=== PATIENT | female | born 1960 | race Caucasian/White ===

== ENCOUNTER → 2019-07-17 | Outpatient (CLI) | payer MEDICARE, MEDICAID | LOC: CARD 12:41 | PROVIDERS: ATTEND Internal Medicine Cardiovascular Disease | DX: E11.9 Type 2 diabetes mellitus without complications (principal); E78.2 Mixed hyperlipidemia; R06.09 Other forms of dyspnea; Z72.0 Tobacco use | CPT/HCPCS: 93306 ==

== ENCOUNTER → 2019-07-22 | Outpatient (CLI) | payer MEDICARE, MEDICAID ==
[~2019-07-22] VITALS: Ht 154 cm; Wt 107.0 kg
[~2019-07-22] MED LIST: CATHETER FLUSH 10 ML SYR IV PRN; REGADENOSON 0.4 MG/5 ML SYR (LEXISCAN) IV ONE
[2019-07-22 09:29] VITALS: BP 128/82
--- NOTE | 2019-07-22 18:59 | STRESS TEST ---
DATE OF SERVICE: 07/22/2019 LEXISCAN MYOVIEW STRESS TEST REPORT REFERRING PHYSICIAN: Dr. Owen. Baseline heart rate is 68, baseline blood pressure is 123/74. Baseline EKG is sinus rhythm with no ischemic changes. In summary, the patient was injected with 10.45 mCi of technetium-99 Myoview and the resting images were obtained. Then, the patient received 0.4 mg of Lexiscan followed by 28.7 mCi of technetium-99 Myoview. Throughout the test, there were no EKG changes. The resting and stress images were reviewed and compared in the short axis, horizontal long axis, and vertical long axis views. Review of the images showed breast attenuation with mild decreased uptake involving the anterior wall with mild reversibility. SSS is 5, SDS 5, TID value 0.96. On the gated images, the left ventricle appeared to be normal size with normal contractility. Calculated ejection fraction 77%. CONCLUSION: 1. The patient tolerated Lexiscan well. 2. Breast attenuation affecting the quality of the images with questionable mild ischemia involving the anterior wall. 3. Normal left ventricular size with normal contractility. Calculated ejection fraction 77%. Job ID: [id number] DocumentID: [id number] Dictated Date: 07/22/2019 15:15:42 Record Label Internship Date: 07/22/2019 18:58:43 Dictated By: JEFF OWEN MD
== END ==
LOC: CARD 07:09
PROVIDERS: ATTEND Internal Medicine Cardiovascular Disease
DX: E11.9 Type 2 diabetes mellitus without complications (principal); E78.2 Mixed hyperlipidemia; R06.09 Other forms of dyspnea; Z72.0 Tobacco use
CPT/HCPCS: 78452; 93017

== ENCOUNTER 2019-07-29 11:45 | Day surgery (SDC) | payer MEDICARE, MEDICAID ==
[~2019-07-29] VITALS: Ht 154 cm; Wt 107.0 kg
[2019-07-29] MEDS ORDERED: NS IV 1000 ML 1,000 ML ONE (11:53)
[2019-07-29] MEDS ORDERED: HEParin (CATH LAB) 2,000 ML IV ONE (11:53)
[2019-07-29] MEDS ORDERED: LIDOCAINE 1% INJ 20 ML 20 ML VIAL ONE (11:53)
[2019-07-29] MEDS ORDERED: NS IV 1000 ML 1,000 ML IV SCH ×2 (12:02→16:08)
[2019-07-29 12:04] VITALS: BP 119/75
[2019-07-29 12:22] LABS: HEMOGLOBIN 16.2 G/DL (11.5-16.0); MEAN PLATELET VOLUME 10.8 FL (7.4-10.4); RED CELL DISTRIBUTION WIDTH 13.1 % (10.0-14.5); WHITE BLOOD COUNT 7.7 10^3/uL (4.3-11.0)
[2019-07-29] MEDS ORDERED: DEXL60CA PO (12:23)
[2019-07-29] MEDS ORDERED: LINA5TAB PO (12:23)
[2019-07-29] MEDS ORDERED: ASPI325T32 PO (12:25)
[2019-07-29] MEDS ORDERED: GUAI400T71 PO (12:25)
[2019-07-29] MEDS ORDERED: METF500S5 PO (12:26)
[2019-07-29] MEDS ORDERED: IBUP-2473 PO (12:26)
[2019-07-29] MEDS ORDERED: VITA10007 PO (12:26)
[2019-07-29 12:33] LABS: BILIRUBIN,URINE NEGATIVE (NEGATIVE); CLARITY,URINE SL CLOUDY; COLOR,URINE YELLOW; GLUCOSE, URINE (UA) 1+ (NEGATIVE); KETONES,URINE NEGATIVE (NEGATIVE); LEUKOCYTE ESTERASE ,URINE 1+ (NEGATIVE); NITRITE,URINE NEGATIVE (NEGATIVE); PROTEIN,URINE 2+ (NEGATIVE)
--- NOTE | 2019-07-29 12:35 | Diagnostic Imaging Report ---
INDICATION: Pre-heart catheterization. Patient has dyspnea. TIME OF EXAM: 12:12 p.m. COMPARISON: No prior studies are available for comparison. FINDINGS: The heart size is normal. The pulmonary vascularity is unremarkable. The lungs are clear. No infiltrate, effusion or pneumothorax is detected. IMPRESSION: No acute cardiopulmonary process is detected. Dictated by: Dictated on workstation # [id number]
[2019-07-29 12:36] LABS: INR 0.9 (0.8-1.4); PROTHROMBIN TIME PATIENT 12.9 SEC (12.2-14.7)
[2019-07-29 12:44] LABS: ALANINE AMINOTRANSFERASE 76 U/L (0-55); ALBUMIN 4.1 GM/DL (3.2-4.5); ALKALINE PHOSPHATASE 131 U/L (40-136); BILIRUBIN,TOTAL 0.5 MG/DL (0.1-1.0); BUN/CREATININE RATIO 22; CALCIUM 9.6 MG/DL (8.5-10.1); CARBON DIOXIDE 24 MMOL/L (21-32); CHLORIDE 104 MMOL/L (98-107); CREATININE SERUM 0.74 MG/DL (0.60-1.30); GFR ESTIMATED > 60; GLUCOSE 161 MG/DL (70-105); POTASSIUM 4.3 MMOL/L (3.6-5.0); SODIUM 138 MMOL/L (135-145); TOTAL PROTEIN 7.3 GM/DL (6.4-8.2)
[2019-07-29] MEDS ORDERED: METF-397 PO (12:46)
--- NOTE | 2019-07-29 12:47 | NUR ---
SPOKE WITH THE PT (SHE HAD A MED LIST) WELL CALLING [facility] TO COMPLETE THE MED REC. THE PT WAS ABLE TO TELL ME HOW/WHEN SHE TAKES EACH MEDICATION. THE FOLLOWING ARE FILL DATES FROM [facility]: 04-24-2019 METFORMIN 500MG #60/30DS 06-12-2020 DEXILANT 60MG #30/30DS 07-13-2019 TRADJENTA 5MG #30/30DS THE PT WAS ASKED BY THE NURSE IF SHE WAS DIABETIC, PT REPLIED THAT YES SHE WAS BUT SHE DIDNT MONITOR IT. WHEN ASKED ABOUT INSULIN SHE IS SAYING SHE WAS SUPPOSED TO TAKE IT BUT NEVER DID. WHEN I CALLED [facility] THEY INDICATED THERE WAS NO INSULIN ON HER FILE. OTC MEDS: IBUPROFEN ASPIRIN MUCINEX VIT E
[2019-07-29 12:51] LABS: BACTERIA,URINE FEW /HPF; RBC,URINE RARE /HPF
[2019-07-29 12:52] LABS: TRICHOMONAS,URINE FEW /HPF
[2019-07-29] MEDS ORDERED: VERAPAMIL 5 MG/2 ML (CALAN) VIAL IV ONE (15:27)
[2019-07-29] MEDS ORDERED: NITRO DRIP 25000 MCG/D5W 250 ML IV ONE (15:27)
[2019-07-29] MEDS ORDERED: HEParin 1000 UNIT/ML (10ML VIAL) FOR BOLUS ONE (15:27)
[2019-07-29] MEDS ORDERED: fentaNYL INJECTION 100 MCG/2 ML AMP ONE (15:31)
[2019-07-29] MEDS ORDERED: MIDAZOLAM 5 MG/5 ML (VERSED) VIAL ONE (15:32)
--- NOTE | 2019-07-29 16:09 | Cardiac Procedure Note-CS/ASA ---
Pre-Procedure Note Pre-Op Procedure Note H&P Reviewed The H&P was reviewed, patient examined and no changes noted. Date H&P Reviewed: Jul 29, 2019 Time H&P Reviewed: 13:00 Conscious Sedation Pre-Proced Time 13:00 ASA Score 3 For ASA 3 and 4: Consider anesthesia and medical clearance. Also, for patients with a history of failed moderate sedation consider anesthesia. Airway Lungs Heart ASA score ASA 1: a normal healthy patient ASA 2: a patient with a mild systemic disease (mid diabetes, controlled hypertension, obesity x ASA 3: a patient with a severe systemic disease that limits activity (angina, COPD, prior Myocardial infarction) ASA 4: a patient with an incapacitating disease that is a constant threat to life (CHF, renal failure) ASA 5: a moribund patient not expected to survive 24 hrs. (ruptured aneurysm) ASA 6: a declared brain- patient whose organs are being harvested. For emergent operations, add the letter E after the classification Mallampati Classification Grade 3 Sedation Plan Analgesia, Amnesia, Plan communicated to team members, Discussed options with patient/fam, Discussed risks with patient/fam The patient is an appropriate candidate to undergo the planned procedure, sedation, and anesthesia. The patient immediately re-assessed prior to indication. JEFF ALLRED MD Jul 29, 2019 16:09
--- NOTE | 2019-07-29 16:12 | Cardiac Cath Report ---
Cardiac Cath Report Physician (s)/Fnps (s) Physician JEFF ALLRED MD Pre-Procedure Diagnosis Pre-Procedure Diagnosis: chest pain, coronary artery disease Post-Procedure Note Procedure Start Date: Jul 29, 2019 Name of Procedure: left heart catheterization Findings/Procedure Note PROCEDURE NOTE: After explaining the procedure to the patient, all pros and cons were explained, all questions were answered. The patient signed the consent and then she was placed on the cardiac catheterization laboratory. Groin was prepped SL fashion local anesthesia was used. Sheath placed in the right radial artery, [place] catheter advanced to the left ventricular cavity, pressure was measured, pullback LV to aorta was done, coronary angiogram was done. At the end of the procedure vascular band was used FINDINGS: Hemodynamics LV 117/19, end-diastolic pressure 19 Aorta 112/84 mean of 86 ANATOMY: Left Main is free of obstructive disease Left Anterior Descending has mild ectasia with slow flow in the LAD due to small vessel disease Left Circumflex has mild ectasia with no obstructive disease Right Coronory Artery is dominant artery with no obstructive disease LV Gram was not done pressure was measured CONCLUSION: 1. Mild ectasia in the left coronary system with slow flow due to small vessel disease 2. Dominant right coronary artery with no obstructive disease 3. Mildly elevated left ventricular end-diastolic pressure DISCUSSION AND RECOMMENDATION: medical therapy is recommended Anesthesia Type: Conscious Sedation Estimated blood loss (mL): 10 ml Contrast Amount: 39 ml Total Radiation Dose: 567 mGy Post-Procedure Diagnosis Post-operative diagnosis: chest pain Coronary artery disease Hypertension Hyperlipidemia JEFF ALLRED MD Jul 29, 2019 16:12
[2019-07-29] MEDS ORDERED: ATOR10TA PO (16:13)
--- NOTE | 2019-07-29 16:14 | Discharge Inst-Post CATH ---
Discharge Inst-CATH/EP Problems Reviewed?: Yes Post Cardiac Cath/EP D/C Inst Follow Up/Plan Hold metformin for [address] ALLRED's office in 2-4 weeks <b>CARDIAC CATH/EP PROCEDURE DISCHARGE INSTRUCTIONS</b> ACTIVITY * Go Home directly and rest. * Limit activity of the leg (or wrist if it was used) for 7 days including aerobics, swimming, jogging, bicycling, etc. * Restrict stair-climbing for 7 days if possible, if not, climb up with your non-cath leg, then bring together on the same step. * Avoid lifting, pushing, pulling or excessive movement of the affected extremity for 7 days. * Customary sexual activity may be resumed after 2 days-use caution not to use a position that strains or causes pain to the affected extremity. * No driving for 24 hours. * NO SMOKING. * Avoid straining for bowel movements for 7 days. * Gentle walking on level ground is allowed. * Returning to work will depend on the type of procedure and the results. Your doctor will discuss this with you. CALL YOUR DOCTOR FOR ANY OF THE FOLLOWING: *If bleeding from the puncture site occurs- Apply gentle pressure to site with clean cloth and call your doctor or EMS. * If a knot or lump forms under the skin, increases in size, or causes pain. * If bruising appears to be worsening or moving further down your leg instead of disappearing. * Temperature above 101 F. CARE OF YOUR GROIN INCISION; * Bruising or purple discoloration of the skin near the puncture site is common. * You may shower only, no bathtub bathing for 5 days. Be careful to avoid slipping as your leg may feel stiff. * If a closure device was used on your femoral artery, please see the attached guide regarding care of the device and your leg. * Leave dressing on FOR 24 hours. CARE OF YOUR WRIST INCISION; * Bruising or purple discoloration of the skin near the puncture site is common. * You may shower. * DO NOT submerge wrist. * Leave dressing on FOR 24 hours. JEFF ALLRED MD Jul 29, 2019 16:14
[2019-07-29 16:15] VITALS: BP 98/58
[2019-07-29 17:45] VITALS: BP 116/77
== END 2019-07-29 18:00 | disposition home or self-care (01) ==
LOC: CATH 11:45 → ICU 16:15 → CATH 18:00
PROVIDERS: ATTEND Internal Medicine Cardiovascular Disease
DX: I25.10 Atherosclerotic heart disease of native coronary artery without angina pectoris (principal); I10 Essential (primary) hypertension; E78.2 Mixed hyperlipidemia; E11.9 Type 2 diabetes mellitus without complications; E66.9 Obesity, unspecified; G47.33 Obstructive sleep apnea (adult) (pediatric); F17.210 Nicotine dependence, cigarettes, uncomplicated; J44.9 Chronic obstructive pulmonary disease, unspecified; Z68.42 Body mass index [BMI] 45.0-49.9, adult; Z79.84 Long term (current) use of oral hypoglycemic drugs; Z79.82 Long term (current) use of aspirin; Z80.9 Family history of malignant neoplasm, unspecified; Z82.3 Family history of stroke
CPT/HCPCS: 36415; 71045; 80053; 81000; 85027; 85610; 85730; 87081; 87088; 93458

== ENCOUNTER → 2022-04-10 | Outpatient (CLI) | payer MEDICARE, MEDICAID ==
[~2022-04-10] MED LIST changes: +ASPI325T32 PO; +ATOR10TA PO; -CATHETER FLUSH 10 ML SYR IV PRN; +DEXL60CA PO; +GUAI400T86 PO; +IBUP-2473 PO; +LINA5TAB PO; +METF-397 PO; +METF500S7 PO; -REGADENOSON 0.4 MG/5 ML SYR (LEXISCAN) IV ONE; +VITA10007 PO
--- NOTE | 2022-04-10 09:37 | Diagnostic Imaging Report ---
CT CHEST SCREENING WO TECHNIQUE: Low-dose unenhanced CT of the chest was performed according to the screening protocol. Coronal MIP and sagittal MPR reformats are created. Automatic exposure controls were utilized to keep dose as low as reasonably achievable. INDICATION: Current smoker with 40 pack year history of smoking. COMPARISON: None available. FINDINGS: Pulmonary findings: No abnormality of the trachea. No pneumonia or edema. There are no suspicious pulmonary nodules. Extrapulmonary findings: Incompletely imaged calcified left thyroid nodule may measure up to 2 cm in size. No axillary or mediastinal lymphadenopathy. No pericardial or pleural effusion. Severe coronary artery calcifications. Normal caliber thoracic aorta. Low-attenuation liver could be due to hepatic steatosis. IMPRESSION: 1. No features of clinically active lung cancer. Continued annual screening with low-dose CT chest in 12 months. 2. Incidental note of left thyroid nodule. Nonemergent thyroid ultrasound is recommended for further assessment, if this has not been previously worked up. 3. Potential diffuse hepatic steatosis. 4. Severe coronary artery calcification. Lung-RADS category: 1S - Negative Modifier: S-Thyroid Nodule Dictated by: Dictated on workstation # [id number]
== END ==
LOC: RAD 07:20
PROVIDERS: ATTEND Family Medicine
DX: Z12.2 Encounter for screening for malignant neoplasm of respiratory organs (principal); K76.0 Fatty (change of) liver, not elsewhere classified; I25.10 Atherosclerotic heart disease of native coronary artery without angina pectoris; F17.210 Nicotine dependence, cigarettes, uncomplicated
CPT/HCPCS: 71271

== ENCOUNTER → 2022-05-28 | Outpatient (CLI) | payer MEDICARE, MEDICAID ==
[~2022-05-28] VITALS: Ht 152.4 cm; Wt 107.0 kg
[~2022-05-28] MED LIST changes: +LIDOCAINE 1% INJ 30 ML (XYLOCAINE) VIAL INJ ONE
--- NOTE | 2022-05-28 11:38 | Diagnostic Imaging Report ---
INDICATION: Left lobe thyroid nodule. Patient presents for ultrasound-guided fine-needle aspiration and biopsy. Patient brought to the procedure room and placed on the table in the supine position. Ultrasound imaging of the neck was performed to evaluate appropriate entry site. Left neck was then prepped and draped in usual sterile fashion. Small amount of 1% lidocaine was utilized for local anesthesia. A total of 4 passes were made into the dominant solid mass in the lower pole of the left lobe of thyroid utilizing 25-gauge needles and fine-needle aspiration technique. A single pass was made with a Rotex needle and Rotex biopsy was performed. [place] were removed and hemostasis was obtained. Patient tolerated the procedure well and left the department in stable condition. IMPRESSION: Successful ultrasound guided fine needle aspiration and Rotex biopsy of dominant left lobe thyroid nodule. Pathology results are currently pending. Dictated by: Dictated on workstation # [id number]
== END ==
LOC: RAD 10:45
PROVIDERS: ATTEND Otolaryngology Otolaryngology/Facial Plastic Surgery
DX: E04.1 Nontoxic single thyroid nodule (principal)
CPT/HCPCS: 10005